=== PATIENT | male | born 1960 | race Caucasian/White ===

== ENCOUNTER 2023-11-03 05:41 | Inpatient (IN) | payer OTHER, SELFPAY ==
--- NOTE | 2023-11-03 02:45 | ED.GENMED ---
History of Present Illness
<JARROD Kim - Last Filed: 11/03/23 02:53>
General
Chief Complaint: Abdominal Pain
Source: patient
Exam Limitations: none
Time Seen by Provider: 11/03/23 02:32
Nursing documentation reviewed up to this point in time: agreed with
Travel History
Have you had any contact with someone who has COVID-19?: No
Do you have any symptoms of coronavirus? Fever > 100 degrees, chills, cough, shortness of breath, sore throat, loss of taste or smell, muscle aches, or headache?: No
History of Present Illness
History of Present Illness:
patient is a 63 y/o male with PMH of diverticulitis and colostomy with reversal 2 years ago presenting with abdominal pain x 8 hrs. patient states he noticed the pain around 6 pm. patient stated the pain started out dull but has become worse and
more of a sharp pain. Patient admits the pain is localized to the upper abdomen. patient denies any palliative efforts. patient admits to increased abdominal distension since the pain has begun. patient denies passing any flatus or stool since onset
of the episode. patient denies N/V/D/C, SOB, CP, GUERRIER, blood in the stool, fever, or chills. Patient admits to 1 glass of bourbon with dinner. patient denies smoking. patient admits to eating a meal since pain started but patient admits food didn't
make pain better or worse. patient admits to colostomy and reversal 2 years ago for his diverticulitis. Patient admits that stool has been different ever since procedure.
Past History
<JARROD Kim - Last Filed: 11/03/23 02:53>
Past History
ED Past Medical History: Other (Psoriatic arthritis) and Other (diverticulitis)
ED Past Surgical History: Orthopedic and Other (Hernia repair)
Social History
Tobacco: Non-smoker
Alcohol: Occasional
Personal: Single
Living: alone
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
Review of Systems
<JARROD Kim - Last Filed: 11/03/23 02:53>
Review of Systems
Constitutional: Reports no symptoms
EENT: Reports no symptoms
Respiratory: Reports no symptoms
Cardiac: Reports no symptoms
ABD/GI: Reports abdominal pain (upper abdomen ) and other (abdominal distension )
: Reports no symptoms
Musculoskeletal: Reports no symptoms
Skin: Reports no symptoms
Neurological: Reports no symptoms
Endocrine: Reports no symptoms
Hematologic/Lymphatic: Reports no symptoms
Psychiatric: Reports no symptoms
Phy Exam
<JARROD Kim - Last Filed: 11/03/23 02:53>
General Physical Exam
General Presentation: moderate distress
General Skin: warm and dry
General Habitus: normal
General Mental: alert
General Hydration: appears well hydrated
ENT Exam
ENT Exam: EOMI, pharynx normal, neck supple and normocephalic
Eye Exam
Eye Exam: PERRL, cornea clear and conjunctiva normal
Cardiovascular Exam
Cardiovascular Exam: regular rate/rhythm, no edema, no murmur and normal peripheral pulses
Pulmonary Exam
Pulmonary Exam: lungs clear, no respiratory distress, no rales, no crackles, no rhonchi, no stridor, no wheezing and no cough
Gastrointestinal Exam
Gastrointestinal Exam: abnormal bowel sounds (absent), distended, surgical scar and tender (tenderness noted to palpation with predominance in LLQ)
Palpation: left upper quadrant: Mild tenderness, left lower quadrant: Moderate tenderness and right upper quadrant: Mild tenderness
Abdominal Scars: left lower quadrant
Auscultation of Abdomen: absent
Neurological Exam
Neurological Exam: alert, oriented x3, no motor deficits and speech normal
Musculoskeletal Exam
Musculoskeletal Exam: full ROM and no edema
Skin Exam
Skin Exam: normal color, warm/dry, no rash and no petechia
Psychiatric Exam
Psychiatric Exam: normal mood/affect
Course
<JARROD Kim - Last Filed: 11/03/23 02:53>
Orders/Labs/Results
Orders:
Orders
11/03/23 02:55
Complete Blood Count/With Diff Urgent
Comprehensive Metabolic Panel Urgent
Lipase Urgent
11/03/23 03:08
Acetaminophen 1000MG/100Ml [Ofirmev] 1,000 mg in 100 ml IV ONCE
Acetaminophen IV Indication:: ED Narcotic Naive Pt-ONCE
11/03/23 03:59
CT Abd/Pel (IV only)-DH only Urgent
Comment:
Reason For Exam: abd pain
11/03/23 04:49
Ketorolac [Toradol] 30 mg IV NOW STA
Abnormal Lab Results
11/03/23
02:55
MCV 94.2 H fL
(80.0-94.0)
MCH 31.9 H pg
(27.0-31.0)
MPV 10.7 H fL
(7.4-10.4)
BUN 29 H mg/dl
(9-20)
Glucose 110 H mg/dl
(70-99)
11/03/23 02:55
11/03/23 02:55
Vital Signs
Initial and Last Documented VS:
Initial Vital Signs
Temp Pulse Resp BP Pulse Ox
97.5 F 68 18 126/75 97
11/03/23 02:27 11/03/23 02:27 11/03/23 02:27 11/03/23 02:27 11/03/23 02:27
Last Documented Vital Signs
Temp Pulse Resp BP Pulse Ox
97.5 F 68 18 126/75 97
11/03/23 02:27 11/03/23 02:27 11/03/23 02:27 11/03/23 02:27 11/03/23 02:27
<Otis Rich DO - Last Filed: 11/03/23 05:08>
Orders/Labs/Results
Orders:
Orders
11/03/23 02:55
Complete Blood Count/With Diff Urgent
Comprehensive Metabolic Panel Urgent
Lipase Urgent
11/03/23 03:08
Acetaminophen 1000MG/100Ml [Ofirmev] 1,000 mg in 100 ml IV ONCE
Acetaminophen IV Indication:: ED Narcotic Naive Pt-ONCE
11/03/23 03:59
CT Abd/Pel (IV only)-DH only Urgent
Comment:
Reason For Exam: abd pain
11/03/23 04:49
Ketorolac [Toradol] 30 mg IV NOW STA
Abnormal Lab Results
11/03/23
02:55
MCV 94.2 H fL
(80.0-94.0)
MCH 31.9 H pg
(27.0-31.0)
MPV 10.7 H fL
(7.4-10.4)
BUN 29 H mg/dl
(9-20)
Glucose 110 H mg/dl
(70-99)
11/03/23 02:55
11/03/23 02:55
Vital Signs
Initial and Last Documented VS:
Initial Vital Signs
Temp Pulse Resp BP Pulse Ox
97.5 F 68 18 126/75 97
11/03/23 02:27 11/03/23 02:27 11/03/23 02:27 11/03/23 02:27 11/03/23 02:27
Last Documented Vital Signs
Temp Pulse Resp BP Pulse Ox
97.5 F 68 18 126/75 97
11/03/23 02:27 11/03/23 02:27 11/03/23 02:27 11/03/23 02:27 11/03/23 02:27
<JARROD Kim - Last Filed: 11/03/23 02:53>
MDM/Problems Addressed
Differential Diagnosis Includes:
diverticulitis
SBO
PUD
pancreatitis
MDM/Problems Addressed:
abdominal pain
<JARROD Kim - Last Filed: 11/03/23 02:53>
*Critical Care Note
Total Time (30-74mins, 75-104mins- exclusive of procedures): Not Applicable
ED Attending Note
<JARROD Kim - Last Filed: 11/03/23 02:53>
-
Portions of this chart may have been created with voice recognition software.� Occasional wrong word or��sound alike� substitutions may have occurred due to the inherent limitations of voice recognition software.
<Otis Rich DO - Last Filed: 11/03/23 05:08>
ED Attending Note
Patient seen and examined by attending physician: Yes
I performed the substantive portion of visit, reviewed & personally made and approve the management plan that is documented in note by myself or NUVIA.: Yes
ED Attending Note:
Pleasant 63-year-old male presents with abdominal pain that is been present for the last 8 hours. Patient has an extensive history of diverticulitis with colostomy and reversal in the past. Patient concerned because the pain began around 6 PM.
The pain evolved into a more sharp pain. Patient did have some nausea. Patient reports nothing exacerbates or alleviates the pain. Denies fever or chills. Patient was seen in conjunction with the PA student. I have reviewed and agree with the
history and treatment plan presented. On my independent physical exam, patient is awake, alert, and oriented x3, moderate acute distress. Patient request nonnarcotic pain medications. Heart is regular rate and rhythm lungs are clear to
auscultation bilaterally. There are high-pitched bowel sounds in the upper abdomen. Diminished bowel sounds in the lower abdomen. Moves all 4 extremities. Skin is warm and dry.
Discharge Plan
Departure
Patient Disposition: Admit
Date of Disposition: 11/03/23
Time of Disposition: 05:07
Admit to: Telemetry
Presentation/result/management discussed w/ accepting MD/DO: Hospitalist
Condition: Fair
Discharge Problem:
SBO (small bowel obstruction)
Prescriptions:
No Action
sulfamethoxazole-trimethoprim 800-160 mg Tablet
1 tab PO BID
Rx Instructions:
to end 05/18/22
Orencia
1 dose IV MONTHLY
Patient Comments:
patient does not know dose
tadalafil [Cialis] 10 mg Tablet
10 mg PO DAILY
hydrocodone-acetaminophen 5-325 mg tablet
1 - 2 tab PO Q4HPRN PRN (Reason: moderate to severe pain) Qty: 20 0RF
Referrals:
Naman Sarmiento DO [Family Provider] -
Interventions
Interventions:
*Risk Screen - Suicide Last Done: 11/03/23 02:54
*General Assessment Last Done: 11/03/23 02:54
*Neglect/Abuse Screening Last Done: 11/03/23 02:54
ED- Fall Risk Assessment Last Done: 11/03/23 03:02
*ED COVID-19 Vaccine History Last Done: 11/03/23 02:54
HJ-Vxbgaz-Nxrlrhceyg Assessment Last Done: 11/03/23 03:02
[2023-11-03 03:09] LABS: % Basophils 0.6 % (0-2); % Eosinophils 2.5 % (0-6); % Immature Granulocytes 0.3 % (0-0.5); % Lymphocytes 27.5 % (20.5-51.1); % Neutrophils 62.1 % (42.2-75.2); Absolute Basophils 0.1 10^3/uL (0-0.2); Absolute Eosinophils 0.2 10^3/uL (0-0.7); Absolute Lymphocytes 2.5 10^3/uL (1.2-3.4); Absolute Monocytes 0.6 10^3/uL (0.1-0.6); Absolute Neutrophils 5.6 10^3/uL (1.4-6.5); Hematocrit 46.7 % (39.0-52.0); Hemoglobin 15.8 g/dL (13.0-18.0); Mean Corp Hgb Conc. 33.8 g/dL (33.0-37.0); Mean Corpuscular Hgb 31.9 pg (27.0-31.0); Mean Corpuscular Volume 94.2 fL (80.0-94.0); Mean Platelet Volume 10.7 fL (7.4-10.4); Nucleated Red Blood Cells % 0 % (-); Platelet Count 253 10^3/uL (130-400); Red Blood Cell Count 4.96 10^6/uL (4.70-6.10)
[2023-11-03] MEDS: OFIRMEV 100 IV (03:15)
[2023-11-03 03:21] LABS: ALT (SGPT) 31 U/L (0-50); AST (SGOT) 50 U/L (17-59); Alkaline Phosphatase 69 U/L (38-126); Blood Urea Nitrogen 29 mg/dl (9-20); Calcium 9.4 mg/dl (8.4-10.2); Carbon Dioxide 29 mmol/L (22-30); Chloride 102 mmol/L (98-107); Estimated Creatinine Clearance 60 ml/min; Glucose 110 mg/dl (70-99); Lipase 86 U/L (23-300); Potassium 4.5 mmol/L (3.5-5.1); Sodium 137 mmol/L (135-145); Total Bilirubin 0.7 mg/dl (0.2-1.3); Total Protein 6.4 g/dl (6.3-8.2); eGFR > 60.00
[2023-11-03] MEDS: TORADOL 30 MG IV (04:52)
--- NOTE | 2023-11-03 05:14 | HPS.HSE ---
Family Physician
-
Family Physician: Naman Sarmiento
Chief Complaint
-
abdominal pain
History of Present Illness
63M HX perforated viscus 2/2 complicated diverticulitis and colostomy with reversal(2021) pw new onset of dull aching abdominal pain, progressively worse especially upper abdomen, No BM and no flatus for last 8hrs prior to ER visit.
At ER he had 2 BMS with flatus, liwuid , soft stool and hard stool but not large.
Since BW surgery , never had regular BW habit. Normally take Miralax every 10 days. Last 3wee ks somehow he missed taking Miralax
Denied N/V/ diarrhea
Medical History
Past Medical History
Past Medical History: Reports Other
Additional Past Medical History:
Psoriatic arthritis
Complicated diverticulitis
Past Surgical History: Reports Orthopedic (hernia repair )
Social History
Tobacco: Non-smoker
Alcohol: Occasional
Personal: Single
Living: Alone
Family History
Family History: Not pertinent
Allergies / Home Medications
Allergies reflects when Allergies were last updated in [facility].
Home Medications with original date entered in [facility]
Allergy/Medication List:
Allergies
Allergy/AdvReac Type Severity Reaction Status Date / Time
SHELLFISH: CLAMS, MUSSELS Allergy Nausea / Uncoded 11/03/23 02:25
Vomiting
Home Medications
Orencia 1 dose IV MONTHLY 05/15/22
sulfamethoxazole 800 mg-trimethoprim 160 mg tablet 1 tab PO BID 05/15/22
tadalafil 10 mg tablet (Cialis) 10 mg PO DAILY 05/15/22
hydrocodone 5 mg-acetaminophen 325 mg tablet 1 - 2 tab PO Q4HPRN PRN moderate to severe pain #20 tabs 05/18/22
Review of Systems
-
Constitutional: Reports No Symptoms
EENT: Reports No Symptoms
Respiratory: Reports No Symptoms
Cardiac: Reports No Symptoms
Abdomen/GI: Reports See HPI, Abdominal Pain and Nausea; Denies Vomiting or Diarrhea
: Reports No Symptoms
Musculoskeletal: Reports No Symptoms
Skin: Reports No Symptoms
Neurological: Reports No Symptoms
Endocrine: Reports No Symptoms
Hematologic/Lymphatic: Reports No Symptoms
Psych: Reports No Symptoms
Physical Exam
Vital Signs
Vital Signs
Temp Pulse Resp BP Pulse Ox
97.5 F 68 18 126/75 97
11/03/23 02:27 11/03/23 02:27 11/03/23 02:27 11/03/23 02:27 11/03/23 02:27
Physical Exam
General: Well Developed, No Apparent Distress, Comfortable and Conversant
HEENT: NormoCephalic, Anicteric and Moist mucous membranes
Respiratory: Clear; No Wheezes, Rales or Rhonchi
Cardiac: S1/S2
GI: Non Distended (distended ), Tender (LLQ ), Distended and Other; No Normal Bowel Sounds (absent BS )
Rectal: Deferred by Provider
Genito-urinary: Deferred by me
Musculoskeletal: No Edema
Skin: Warm
Neuro: AO x 3
Psych: Calm
Laboratory Results
-
11/03/23 02:55
11/03/23 02:55
Laboratory Results
Total Bilirubin 0.7 mg/dl (0.2-1.3) 11/03/23 02:55
AST 50 U/L (17-59) 11/03/23 02:55
ALT 31 U/L (0-50) 11/03/23 02:55
Alkaline Phosphatase 69 U/L (38-126) 11/03/23 02:55
Lipase 86 U/L (23-300) 11/03/23 02:55
Data Reviewed
-
CT Scan: Report Reviewed by me
Lab Data: Labs Reviewed by me
Impression/Plan
-
Data
unremarkable CBC
Cr 1.2 e GDR > [address] w IV contrast
Small bowel is moderately dilated at 3.8 cm concerning for small bowel obstruction, gradual transition identified in the left upper quadrant with small bowel feces, a sign of stasis. The distal small bowel is decompressed. There is mild stranding in
the mesentery and free fluid, which may be related to venous congestion. No evidence of pneumatosis, free air, or wall thickening; although no definite signs of ischemic bowel consider correlation with lactic acid level. Suggest surgical
consultation.
Too small to characterize low-density lesions in the liver, may represent small cysts.
Postoperative changes in the rectum
Nonobstructing stone in the right kidney. No hydronephrosis or hydroureter.
ASSESSMENT & PLAN
partial SBO wit gradual transition identified in the left upper quadrant suspect adhesive pathology
Mild stranding in the mesentery and free fluid
No evidence of BW compromise
No prior episode of SBO
HX perforated viscus 2/2 complicated diverticulitis and colostomy with reversal(2021
- NPO and IVF
- NGT of persistent vomiting
- IV Toradol PRN
- GS consult
DVT Px: SCD
Code: Full
IP MS
[2023-11-03] MEDS: NSS 1000 IV (06:12)
--- NOTE | 2023-11-03 10:25 | W.PN.UPDATE ---
Update Note
Progress Note Update
Seen by Dr. Martínez this am
Admitted for PSBO
Pt is not nauseous today
Abdominal pain is improved. Less distention.
Had 3 bowel movement since admission to the ER.
Abdomen soft. Mildly distended. Mild discomfort in his left abdomen but no real tenderness. No rebound guarding rigidity.
Await surgical input.
In view no N/V and having BM will start on clears and follow.
--- NOTE | 2023-11-03 13:24 | CM ---
Patient seen at bedside. Patient stated that he lives alone in a single floor home with no DME. Patient asking to go home. Patient PCP Dr. Kim and he uses the [facility] in [place] for pharmacy needs. Patient stated he drove himself to the
hospital and was looking forward to talking to surgery. CM will continue to follow for discharge planning needs.
Plan; home with no needs vs home with VN
--- NOTE | 2023-11-03 13:47 | CON.GS ---
Consultation
-
Requesting Provider: Damon
Performing Provider: Samia
Reason for Consultation: pSBO
Medical History
-
Chief Complaint: Abd pain
History of Present Illness:
63M with new onset progressive dull abdominal pain, generalized. Denies f/c/n/v. Reports he ate a large salad, apples and pineapples over the past 2 days. Since arrival to the ED he has had several BMs and flatus with relief.
Past Medical History
Past Medical History: Other (Psoriatic arthritis Complicated diverticulitis)
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
Social History
Tobacco: Non-Smoker
Alcohol: Occasional
Personal: Single
Living: Alone
Family History
Family History: Reviewed & Noncontributory
Allergies / Home Medications
Allergy/AdvReac Type Severity Reaction Status Date / Time
SHELLFISH: CLAMS, MUSSELS Allergy Nausea / Uncoded 11/03/23 02:25
Vomiting
Medication Instructions Recorded Confirmed Type
Fish Oil 1 cap PO DAILY 11/03/23 11/03/23 History
Orencia 1 dose IV QMONTH 11/03/23 11/03/23 History
bethanechol chloride 25 mg tablet 25 mg PO TID 11/03/23 11/03/23 History
finasteride 5 mg tablet 5 mg PO DAILY 11/03/23 11/03/23 History
folic acid 1 tab PO DAILY 11/03/23 11/03/23 History
hydroxychloroquine 200 mg tablet 400 mg PO DAILY 11/03/23 11/03/23 History
meloxicam 7.5 mg tablet 7.5 mg PO BID 11/03/23 11/03/23 History
tadalafil 20 mg tablet 20 mg PO DAILY 11/03/23 11/03/23 History
Review of Systems
-
A 10 point review of systems was completed, and was negative except as per HPI.
Physical Exam
Vital Signs
Temp Pulse Resp BP Pulse Ox
98.5 F 68 17 108/75 95
11/03/23 08:30 11/03/23 08:30 11/03/23 08:30 11/03/23 08:30 11/03/23 08:30
11/02/23 11/03/23 11/04/23
06:59 06:59 06:59
Actual Weight 79.3 kg
Body Mass Index (BMI) 27.4
Lab Results
11/03/23 02:55
11/03/23 02:55
WBC 9.0 10^3/uL (4.8-10.8) 11/03/23 02:55
Hgb 15.8 g/dL (13.0-18.0) 11/03/23 02:55
Hct 46.7 % (39.0-52.0) 11/03/23 02:55
Plt Count 253 10^3/uL (130-400) 11/03/23 02:55
Abs Immat Gran (auto) 0.0 10^3/uL (0-0.05) 11/03/23 02:55
Neutrophils % 62.1 % (42.2-75.2) 11/03/23 02:55
Physical Exam
General: Well Developed, Well Nourished and No Apparent Distress
GI: Soft, Non Distended and Tender (very mid ttp to mid abdomen)
Skin: Warm and Dry
Neuro: AO x 3
Psych: Calm
Data Reviewed
-
CT Scan: Image Personally Visualized and interpreted, Report Reviewed by me and Discussed with Patient
Labs: Labs Reviewed by me and Discussed with Patient
Assessment / Plan
-
63M with resolving pSBO in setting of dietary indiscretion
AFVSS, passing stool and flatus, pain improved, ayesha clears
Labs OK
CT with dilated small bowel without distinct transition point, no signs of bowel threat or compromise, air and stool in colon down to rectum
Plan:
OK for DC home and dietary guidance provided
Advised he must avoid fruit and veg for the next few weeks except for pureed
Advised to stay on liquid diet today with miralax
Tomorrow will start soft foods at home and gradually return to his normal diet (with only limited or pureed fruit/veg)
--- NOTE | 2023-11-03 14:28 | PTCARENOTE ---
Patient arrived to floor and seen by general surgery within 30 minutes. General surgery states patient does not need to be admitted. Vital signs stable. Patient denies complaints at this time. Peripheral IV removed. Awaiting discharge instructions.
Call herrera in reach.
--- NOTE | 2023-11-03 14:37 | W.DS.TRANS ---
DC Summary - Director Skills
-
Discharge Instructions:
Discharge Diagnosis/Procedures PSBO -resolving
Diet Other diet
Additional Diets Advised he must avoid fruit and veg for the next
few weeks except for pureed
Advised to stay on liquid diet today with
miralax
Tomorrow will start soft foods at home and
gradually return to his normal diet (with only
limited or pureed fruit/veg)
Driving Restrictions As prior to admission
Bathing Restrictions None
Instructions:
Stand-Alone Forms:
Changes to Home Medications: No
Discharge Medications:
DC Medications w/original date entered in [facility]
Fish Oil 1 cap PO DAILY 11/03/23
Orencia 1 dose IV QMONTH 11/03/23
bethanechol chloride 25 mg tablet 25 mg PO TID 11/03/23
finasteride 5 mg tablet 5 mg PO DAILY 11/03/23
folic acid 1 tab PO DAILY 11/03/23
hydroxychloroquine 200 mg tablet 400 mg PO DAILY 11/03/23
meloxicam 7.5 mg tablet 7.5 mg PO BID 11/03/23
tadalafil 20 mg tablet 20 mg PO DAILY 11/03/23
Home Medication Changes
Pending Results: No
--- NOTE | 2023-11-04 07:58 | W.DCSUMMARY ---
Discharge Summary
Discharge Data
Date of Admission: 11/03/23
Date of Discharge: 11/03/23
-
Pending Results: No
Hospital Course
Primary diagnosis:
Partial small bowel obstruction
Secondary diagnosis:
Complicated diverticulitis status post Crowley's procedure and later reversal
Hernia repair
Psoriatic arthritis
Hospital course:
Patient with a bowel abdominal surgeries presented with the dull abdominal pain which was generalized and got progressively worse. He had no nausea or vomiting with it. He had a large meal with salad, apples and pineapples for 2 days. In ER he
had 3 bowel movements.
Since his bowel surgery he did not have regular bowel habits. He had variations. Diarrhea, constipation and sometimes abdominal distention. He has seen his surgeon, GI and PCP in that regard. He states he is currently getting evaluated for SIBO.
His abdomen benign. He had a CT abdomen without oral contrast and it showed fluid-filled dilated proximal to mid small bowel are seen measuring up to 3.8 cm concerning for at least partial small bowel obstruction with gradual transition
identified in the left abdomen with small bowel fecal sign as well as accompanying mild stranding in the mesentery which may be related to venous congestion. Findings could be related to adhesions in light of known prior distal colonic surgery. No
small bowel pneumatosis.
He was seen by surgeon who felt that this probably a partial small bowel obstruction in the setting of dietary discretions. It was resolving prior to discharge. He was having bowel movements. He was tolerating a liquid diet and he plans to
advance diet at home.He was given instructions to return to ER if recurrent symptoms.
Consultants on board:
Surgery-Dr. Gracia
Discharge Plan
-
Patient Disposition: Home (Routine Discharge)
Discharge Diagnosis/Procedures: PSBO -resolving
Condition: Good
Diet: Other diet
Additional Diets: Advised he must avoid fruit and veg for the next few weeks except for pureed
Advised to stay on liquid diet today with miralax
Tomorrow will start soft foods at home and gradually return to his normal diet (with only limited or pureed fruit/veg)
Driving Restrictions: As prior to admission
Bathing Restrictions: None
Referrals:
Naman Sarmiento DO [Family Provider] - in less than 1 week
Prescriptions:
Continued
bethanechol chloride 25 mg Tablet
25 mg PO TID
meloxicam 7.5 mg Tablet
7.5 mg PO BID
hydroxychloroquine 200 mg Tablet
400 mg PO DAILY
finasteride 5 mg Tablet
5 mg PO DAILY
tadalafil 20 mg Tablet
20 mg PO DAILY
Fish Oil
1 cap PO DAILY
Orencia
1 dose IV QMONTH
folic acid
1 tab PO DAILY
Discharge Orders:
Discharge Patient (As Directed); Ordered 11/03/23
Ordered By: John Jose
Discharge Date and Time
Discharge Date/Time: 11/03/23 15:22
== END 2023-11-03 15:22 | disposition home or self-care (01) | DRG 389 ==
LOC: 4 EAST ACU 05:41
PROVIDERS: ADMITTING PHYSICIAN Internal Medicine; ATTENDING PHYSICIAN Internal Medicine; CONSULT PHYSICIAN Surgery; EMERGENCY PHYSICIAN Student in an Organized Health Care Education/Training Program; FAMILY PHYSICIAN Family Medicine
DX: K56.600 Partial intestinal obstruction, unspecified as to cause (principal); K57.92 Diverticulitis of intestine, part unspecified, without perforation or abscess without bleeding; L40.50 Arthropathic psoriasis, unspecified
CPT/HCPCS: 74177; 80053; 83690; 85025; 96361; 96374; 96375; 99285; Q9967

== ENCOUNTER 2025-05-07 06:25 | Day surgery (SDC) | payer OTHER, SELFPAY | END 2025-05-07 13:09 | disposition home or self-care (01) | LOC: GI 06:25 | PROVIDERS: ATTENDING PHYSICIAN Internal Medicine Gastroenterology | DX: K57.30 Diverticulosis of large intestine without perforation or abscess without bleeding (principal); R19.4 Change in bowel habit; K64.8 Other hemorrhoids; Z98.0 Intestinal bypass and anastomosis status | CPT/HCPCS: 45378 ==